=== PATIENT | female | born 1975 | race Caucasian/White ===

== ENCOUNTER 2020-06-21 10:40 | Outpatient (NON) | payer OTHER, SELFPAY ==
[2020-06-22 13:34] LABS: SARS-CoV-2 RNA PCR Positive
== END 2020-06-21 10:41 ==
PROVIDERS: PCP Family Medicine; Visit Provider Family Medicine
DX: U07.1 COVID-19 (principal)
CPT/HCPCS: 87635; C9803; U0003

== ENCOUNTER → 2020-07-25 08:21 | Outpatient (CLI) | payer OTHER, SELFPAY ==
--- NOTE | ~2020-07-25 | XR_ITS ---
XR chest 2V DATE: 07/25/2020 08:44 INDICATION: Shortness of breath TECHNIQUE: PA and lateral views COMPARISON: None FINDINGS: Normal heart size. No hilar or mediastinal enlargement. No pulmonary infiltrate or consolid ation, pleural effusion or pulmonary vascular congestion or pneumothorax. IMPRESSION: No active cardiopulmonary disease Reviewed, dictated and finalized at location A. D GAUGER
== END ==
PROVIDERS: Visit Provider Physician Assistant
DX: R06.02 Shortness of breath (principal)
CPT/HCPCS: 71046

== ENCOUNTER → 2020-08-29 11:13 | Outpatient (CLI) | payer OTHER, SELFPAY ==
--- NOTE | ~2020-08-29 | US_ITS ---
EXAMINATION: US thyroid DATE: 08/29/2020 12:04 INDICATION: Goiter. TECHNIQUE: Multiple ultrasound images of the thyroid were obtained. COMPARISON: Ultrasound 11/21/2013 FINDINGS: The right thyroid lobe measures 4.4 x 1.2 x 1.0 cm. The left thyroid lobe measures 3.7 x 1.0 x 1.2 c m. There is normal echotexture and echogenicity throughout the thyroid gland. No discrete nodules id entified. Normal vascular flow is present. IMPRESSION: 1. Normal thyroid. Reviewed, dictated and finalized at location A. SLIDE MACHINE OPERATOR IMPRESSION: 1. Normal thyroid.
== END ==
PROVIDERS: Visit Provider Internal Medicine Endocrinology, Diabetes & Metabolism
DX: E04.9 Nontoxic goiter, unspecified (principal)
CPT/HCPCS: 76536

== ENCOUNTER → 2021-01-29 10:31 | Outpatient (CLI) | payer OTHER, SELFPAY ==
--- NOTE | ~2021-01-29 | XR_ITS ---
XR abdomen/kub 1V DATE: 01/29/2021 13:46 INDICATION: Kidney stones TECHNIQUE: AP view COMPARISON: None FINDINGS: Multiple bilateral calcified pelvic phleboliths. No significant abnormal calcification is e vident. No visceromegaly is evident. The psoas shadows are intact. There is a moderately prominent amount of fecal material within the colon but no evidence of bowel obstruction. IMPRESSION: Nonspecific abdomen Reviewed, dictated and finalized at Location A. Reviewed, dictated and finalized at location A. IMPRESSION: Nonspecific abdomen
== END ==
PROVIDERS: Visit Provider Urology
DX: N20.0 Calculus of kidney (principal)
CPT/HCPCS: 74018

== ENCOUNTER 2022-05-26 08:17 | Outpatient (CLI) | payer OTHER, SELFPAY ==
--- NOTE | ~2022-05-26 | XR_ITS ---
EXAMINATION: XR chest 2V DATE: 05/26/2022 08:47 INDICATION: Shortness of breath. TECHNIQUE: Frontal and lateral views of the chest were obtained. COMPARISON: Chest 2 views 07/25/2020 FINDINGS: The chest demonstrates clear lungs without pneumonia, pleural effusion, or pneumothorax. Th e heart size is normal. IMPRESSION: 1. No acute cardiopulmonary disease. Reviewed, dictated and finalized at location A.
--- NOTE | ~2022-05-26 | XR_ITS ---
EXAMINATION: XR abdomen/kub 1V DATE: 05/26/2022 08:47 INDICATION: Constipation, unspecified. TECHNIQUE: A supine view of the abdomen on 2 radiographs was obtained. COMPARISON: Abdomen radiograph 01/29/2021 FINDINGS: There are no dilated loops of bowel. There is a large volume of stool in the colon. Calcifi cations in the pelvis are likely phleboliths. IMPRESSION: 1. Nonobstructive bowel gas pattern. Reviewed, dictated and finalized at location A.
[2022-05-26 08:39] LABS: Basophils Absolute Auto 0.1 K/mm3 (0.0-0.1); Basophils Percent Auto 0.9 % (0.2-1.2); Eosinophils Absolute Auto 1.2 K/mm3 (0-0.3); Hematocrit 50.8 % (37.0-47.0); Hemoglobin 17.9 g/dL (12.0-15.0); Immature Granulocyte Absolute 0.04 K/mm3 (0.00-0.031); Immature Granulocyte Percent A 0.3 % (0-0.5); Lymphocytes Absolute Auto 3.04 K/mm3 (0.9-3.2); Lymphocytes Percent Auto 22.9 % (18.3-44.2); Mean Corpuscular HGB Conc 35.2 g/dl (32-36); Mean Corpuscular Hemoglobin 30.2 pg (26-34); Mean Corpuscular Volume 85.7 fl (80-100); Mean Platelet Volume 9.5 fl (7.4-10.4); Monocytes Absolute Auto 0.9 K/mm3 (0.1-0.6); Neutrophils Percent Auto 59.9 % (45.5-73.1); Platelet Count Result 446 k/mm3 (150-375); Red Blood Count 5.93 M/mm3 (4.2-5.4); Red Cell Distribution Width 11.5 % (11.5-14.5); White Blood Count 13.3 K/mm3 (4.5-10.0)
[2022-05-26 08:53] LABS: Alanine Aminotransferase 21 U/L (6-35); Albumin Level 5.2 g/dL (3.5-5.1); Alkaline Phosphatase 73 U/L (38-126); Anion Gap 21 mmol/L (8-16); Aspartate Amino Transferase 23 U/L (14-36); Bilirubin,Total 0.7 mg/dL (0.2-1.3); Blood Urea Nitrogen 14 mg/dL (7-17); Calcium 9.5 mg/dL (8.4-10.2); Carbon Dioxide 12 mmol/L (22-30); Chloride 100 mmol/L (98-107); Estimated Glomerular Filt Rate > 60; Glucose 146 mg/dL (65-110); Potassium 4.3 mmol/L (3.4-5.0); Sodium 133 mmol/L (137-145)
[2022-05-26 08:55] LABS: Amylase 70 U/L (30-110); Lipase 233 U/L (23-300)
[2022-05-26 09:02] LABS: NT Pro B Type Natriuretic Pept 18 pg/mL (5-100)
[2022-05-26 09:13] LABS: D Dimer < 0.27 ug/mL (<0.48)
[2022-05-26 09:27] LABS: Iron 260 ug/dL (37-170)
[2022-05-26 09:36] LABS: Percent Iron Saturation 62 % (20-50)
[2022-05-26 10:01] LABS: Folic Acid 10.1 ng/mL (2.76->20)
== END 2022-05-26 08:18 | disposition home or self-care (01) ==
LOC: ANHLAB 08:18
PROVIDERS: PCP Family Medicine; Visit Provider Physician Assistant
DX: R00.0 Tachycardia, unspecified (principal); R06.02 Shortness of breath; R53.83 Other fatigue; K59.00 Constipation, unspecified
CPT/HCPCS: 36415; 71046; 74018; 80053; 82150; 82607; 82728; 82746; 83540; 83550; 83690; 83880; 84443; 85025; 85380

== ENCOUNTER → 2022-07-31 07:18 | Outpatient (CLI) | payer OTHER, SELFPAY ==
--- NOTE | ~2022-07-31 | XR_ITS ---
AP and lateral views of the bilateral hips Clinical history: Polyarthralgia Findings: No acute fracture or dislocation is seen. Osseous alignment is anatomic. Bilateral hip and SI joint spaces are preserved. Soft tissues are unremarkable. Impression: No significant abnormality is seen. Reviewed, dictated and finalized at location [] ADVICE Impression: No significant abnormality is seen.
--- NOTE | ~2022-07-31 | XR_ITS ---
Lumbosacral Spine: AP and lateral views Clinical History: Pain Findings: The normal lordotic curve is maintained. The vertebral bodies and posterior elements are i ntact. The intervertebral disc spaces are preserved. Facet joint degenerative changes are present at L4-L5 and L5-S1. The sacroiliac joints are normally outlined. Impression: Facet joint degenerative changes, as detailed above. Reviewed, dictated and finalized at location [] TER MACHINE OPERATOR Impression: Facet joint degenerative changes, as detailed above.
--- NOTE | ~2022-07-31 | XR_ITS ---
AP and oblique views of the bilateral SI joints CLINICAL HISTORY: Arthralgia FINDINGS: SI joints are unremarkable. No sclerosis, erosive change, or effusion. No other osseous abn ormality seen. Soft tissues are unremarkable. IMPRESSION: Unremarkable exam. Reviewed, dictated and finalized at location [] ON PICKING MACHINE OPERATOR IMPRESSION: Unremarkable exam.
== END ==
PROVIDERS: PCP Family Medicine; Visit Provider Physician Assistant
DX: M25.50 Pain in unspecified joint (principal); R76.8 Other specified abnormal immunological findings in serum
CPT/HCPCS: 72100; 72202; 73521

== ENCOUNTER 2023-08-25 06:41 | Day surgery (SDC) | payer OTHER, SELFPAY ==
[2023-08-03 15:23] VITALS: BMI 23.8
[2023-08-10 13:32] VITALS: BMI 28.7
[2023-08-25 07:30] VITALS: BP 136/85; PULSE 88; RESP 20; TEMP 37.2; O2SAT 100
[2023-08-25 07:48] LABS: Glucose Point of Care 128 mg/dl (65-105)
[2023-08-25] MEDS: LACTATED RINGERS 1,000 ML 150 ML IV CONT (07:48)
--- NOTE | 2023-08-25 08:04 | WPDANESEPPF ---
Anes - Initial Pre Proc Eval Procedure: Operation Date: 08/25/23 09:00 Proposed Procedures p Screening Colonoscopy - Rowdy Lucia MD Date/Time: 08/25/23 08:04 Surgeon: Rowdy Lucia MD Pre Op Diagnosis: Neoplasm Screening Patient Data Age: 47 Gender: F Height: 1.55 m Weight: 67.5 kg Last Vital Signs Temp 37.2 C 08/25/23 07:30 Pulse 88 08/25/23 07:30 Resp 20 08/25/23 07:30 BP 136/85 08/25/23 07:30 Pulse Ox 100 08/25/23 07:30 O2 Del Method Room Air 08/25/23 07:30 Allergies Allergy/AdvReac Type Severity Reaction Status Date / Time hydrocodone Allergy Unknown Rash Verified 08/25/23 07:51 Home Medications Medication Instructions Recorded Confirmed Type levonorgestrel 0.15 mg-ethinyl 1 tablet PO DAILY 09/07/19 08/10/23 History estradiol 0.03 mg tablet (Levora-28) trazodone 100 mg tablet 100 mg PO .qhs #90 tabs 09/16/20 08/10/23 Rx fluoxetine 20 mg capsule 20 mg PO DAILY #30 caps 05/05/21 08/10/23 Rx empagliflozin 25 mg tablet 25 mg PO DAILY 07/30/21 08/10/23 History (Jardiance) rosuvastatin 20 mg tablet (Crestor) 20 mg PO DAILY #30 tabs 07/30/21 08/10/23 Rx spironolactone 50 mg tablet 50 mg PO BID 07/30/21 08/10/23 History blood sugar diagnostic #100 ea 12/04/22 06/16/23 Rx cyanocobalamin (vitamin B-12) 1,000 mcg subcut WEEKLY #10 mL 06/16/23 08/10/23 Rx 1,000 mcg/mL injection solution metformin 500 mg tablet,extended 1,000 mg PO BID #360 tabs 07/16/23 08/10/23 Rx release 24 hr aspirin 81 mg capsule 81 mg PO DAILY 08/10/23 08/10/23 History bupropion HCl 150 mg 24 hr tablet, 150 mg PO DIRECTED 08/10/23 08/10/23 History extended release semaglutide 0.25 mg or 0.5 mg (2 0.5 mg (0.736 mL) subcut WEEKLY #3 08/13/23 08/25/23 Rx mg/3 mL) subcutaneous pen injector mL sodium,potassium,mag sulfates 17.5 See Rx Instructions PO .COMPLEX 08/18/23 Rx gram-3.13 gram-1.6 gram oral soln #354 mL (Suprep Bowel Prep Kit) Laboratory Tests 08/25/23 07:45 POC Capillary Glucose 128 H mg/dl (65-105) Patient hx anesthesia problems: post op nausea/vomiting Family hx anesthesia problems: none Results Review: All pre-operative results and documents have been reviewed as part of the pre-operative evaluation. PMFSH Past Medical History Medical History Mixed incontinence Vitamin B12 deficiency Family History Family History Father Depression Hypertension Mother Depression Social History Social History Smoking packs per day: 1 Smoking cigarettes per day: 20.0 Years smoked: 15 Smoking pack-years: 15.00 Smoking status: Former smoker Tobacco type: cigarettes Second hand tobacco smoke exposure: No Smoking end date: 08/16/10 Alcohol intake: never Substance use: never Substance use type: does not use Living arrangements: with family Occupation/Education: occupation Gender identity (if verbalized by the patient): Female Spiritual care concerns: No Anes - Eval Final PreProcedure Day of Procedure 08/25/23 08:04 Patient weight: overweight Heart: regular rate and rhythm Lungs: clear to auscultation Airway: Mallampati scale class II Neurological: alert and oriented Last oral intake: >/= 8 hours ASA classification: III Emergent: no Anesthetic plan: proceed Anesthesia type and monitoring: general GIVS and standard monitoring Results Review: All pre-operative results and documents have been reviewed as part of the pre-operative evaluation. Informed Consent: The patient's anesthetic plan and its attendant risks and benefits were discussed with the patient/family/POA. Questions were solicited and answers provided to the satisfaction of the patient/family/POA.
--- NOTE | 2023-08-25 08:07 | PM.HPGS ---
History of Present Illness History of Present Illness Consent: Risks, benefits, and alternatives have been discussed and questions answered. Patient agrees to proceed with procedure. Chief complaint: Neoplasm Screening Narrative: Fina Edgar is a 47 year old female presents for screening colonoscopy. Patient has current weight appetite and bowel movements are normal. Eyes abdominal pain. She has had no bleeding. Family history is noncontributory. Review of Systems Review of Systems: Review of systems is noncontributory. [facility] Past Medical History Medical History Mixed incontinence Vitamin B12 deficiency Family History Family History Father Depression Hypertension Mother Depression Social History Social History Smoking packs per day: 1 Smoking cigarettes per day: 20.0 Years smoked: 15 Smoking pack-years: 15.00 Smoking status: Former smoker Tobacco type: cigarettes Second hand tobacco smoke exposure: No Smoking end date: 08/16/10 Alcohol intake: never Substance use: never Substance use type: does not use Living arrangements: with family Occupation/Education: occupation Gender identity (if verbalized by the patient): Female Spiritual care concerns: No Meds Home Medications and Allergies Home Medications Medication Instructions Recorded Confirmed Type levonorgestrel 0.15 mg-ethinyl 1 tablet PO DAILY 09/07/19 08/10/23 History estradiol 0.03 mg tablet (Levora-28) trazodone 100 mg tablet 100 mg PO .qhs #90 tabs 09/16/20 08/10/23 Rx fluoxetine 20 mg capsule 20 mg PO DAILY #30 caps 05/05/21 08/10/23 Rx empagliflozin 25 mg tablet 25 mg PO DAILY 07/30/21 08/10/23 History (Jardiance) rosuvastatin 20 mg tablet (Crestor) 20 mg PO DAILY #30 tabs 07/30/21 08/10/23 Rx spironolactone 50 mg tablet 50 mg PO BID 07/30/21 08/10/23 History blood sugar diagnostic #100 ea 12/04/22 06/16/23 Rx cyanocobalamin (vitamin B-12) 1,000 mcg subcut WEEKLY #10 mL 06/16/23 08/10/23 Rx 1,000 mcg/mL injection solution metformin 500 mg tablet,extended 1,000 mg PO BID #360 tabs 07/16/23 08/10/23 Rx release 24 hr aspirin 81 mg capsule 81 mg PO DAILY 08/10/23 08/10/23 History bupropion HCl 150 mg 24 hr tablet, 150 mg PO DIRECTED 08/10/23 08/10/23 History extended release semaglutide 0.25 mg or 0.5 mg (2 0.5 mg (0.736 mL) subcut WEEKLY #3 08/13/23 08/25/23 Rx mg/3 mL) subcutaneous pen injector mL sodium,potassium,mag sulfates 17.5 See Rx Instructions PO .COMPLEX 08/18/23 Rx gram-3.13 gram-1.6 gram oral soln #354 mL (Suprep Bowel Prep Kit) Allergies Allergy/AdvReac Type Severity Reaction Status Date / Time hydrocodone Allergy Unknown Rash Verified 08/25/23 07:51 Vital Signs Vital Signs - 24 hr 08/25/23 07:30 Temperature 98.9 F Pulse Rate 88 Respiratory Rate 20 Blood Pressure 136/85 Pulse Oximetry 100 Oxygen Delivery Room Air Exam Narrative: Physical exam reveals patient to be alert. Vital signs stable. HEENT he exam is unremarkable. Patient is anicteric. Lungs are clear to auscultation and to percussion. Is without murmur or extra sounds. Abdomen bowel sounds are present soft no organomegaly. Digital and external rectal exam is normal. Assessment and Plan Assessment and plan (1) Encounter for screening colonoscopy: Code(s): Z12.11 - Encounter for screening for malignant neoplasm of colon Status: Acute Assessment and Plan: The patient presents for screening colonoscopy. She appears to be at average risk for colon cancer.
[2023-08-25 09:24] VITALS: BP 108/76; PULSE 82; RESP 16; O2SAT 97
[2023-08-25 09:34] VITALS: BP 101/78; PULSE 77; RESP 16; O2SAT 97
[2023-08-25 09:44] VITALS: BP 109/80; PULSE 72; RESP 16; O2SAT 100
--- NOTE | 2023-08-25 09:50 | WPDANESPN ---
Anes - Prog Note Post-Op Date/Time: 08/25/23 09:50 Cardiovascular status: normal Respiratory status: normal Airway patency: baseline Mental status: baseline Post-Op hydration status: normal Vital Signs: Last Vital Signs Temp 37.2 C 08/25/23 07:30 Pulse 77 08/25/23 09:34 Resp 16 08/25/23 09:34 BP 101/78 08/25/23 09:34 Pulse Ox 97 08/25/23 09:34 O2 Del Method Room Air 08/25/23 09:34 Pain Score (VAS): 0 I/O: Intake & Output 08/24/23 08/25/23 08/25/23 23:59 07:59 15:59 Intake Total 700 Balance 700 08/25/23 07:45 POC Capillary Glucose 128 H Patient Feedback: Patient satisfied with anesthetic care.
== END 2023-08-25 10:10 | disposition home or self-care (01) ==
PROVIDERS: PCP Family Medicine; Visit Provider Internal Medicine Gastroenterology
PROC: 0DJD8ZZ Inspection of Lower Intestinal Tract, Via Natural or Artificial Opening Endoscopic (ICD-10-PCS; CPT 45378; principal; 2023-08-25 09:00)
DX: Z83.718 Family history of other colon polyps (principal); D12.0 Benign neoplasm of cecum; D12.5 Benign neoplasm of sigmoid colon; K64.8 Other hemorrhoids
CPT/HCPCS: 45380

== ENCOUNTER 2023-08-25 07:00 | Outpatient (NON) | payer OTHER, SELFPAY | END 2023-08-25 07:01 | disposition home or self-care (01) | PROVIDERS: PCP Family Medicine; Visit Provider Internal Medicine Gastroenterology | DX: Z12.11 Encounter for screening for malignant neoplasm of colon (principal) | CPT/HCPCS: 88305 ==

== ENCOUNTER 2023-10-31 13:24 | Emergency (ER) | payer OTHER, SELFPAY ==
--- NOTE | ~2023-10-31 | XR_ITS ---
EXAMINATION: XR chest 2V Exam Date/Time: 10/31/2023 13:50 CDT HISTORY: cough, dyspnea Comparison: 05/26/2022. RESULT: Lines, tubes, and devices: None. Lungs and pleura: Clear. Cardiomediastinal silhouette: Stable. Other: No acute osseous or upper abdominal finding. IMPRESSION: No acute cardiopulmonary process. Reviewed, dictated and finalized at location K.
[2023-10-31 13:31] VITALS: BP 127/90; PULSE 96; RESP 20; TEMP 37.4; O2SAT 100
--- NOTE | 2023-10-31 13:43 | ED.URI ---
HPI - URI/Sore Throat General Chief Complaint: Upper Respiratory Infection Stated Complaint: Cough/Chest Congestion Time Seen by Provider: 10/31/23 13:43 Source: patient Mode of arrival: ambulatory Limitations: no limitations History of Present Illness HPI Narrative: 48 yo F presents with c/o cough, chest congestion for 1 wk. over past few days reports worsening of cough, SOB with coughing and CP. afebrile. Sore throat for 1 day. requesting strep test. No resp distress noted. States she stopped smoking approx. 15 yrs ago. All systems reviewed and negative except as noted above. Related Data Home Medications Medication Instructions Recorded Confirmed levonorgestrel 0.15 mg-ethinyl 1 tablet PO DAILY 09/07/19 08/10/23 estradiol 0.03 mg tablet (Levora-28) empagliflozin 25 mg tablet 25 mg PO DAILY 07/30/21 08/10/23 (Jardiance) spironolactone 50 mg tablet 50 mg PO BID 07/30/21 08/10/23 aspirin 81 mg capsule 81 mg PO DAILY 08/10/23 08/10/23 bupropion HCl 150 mg 24 hr tablet, 150 mg PO DIRECTED 08/10/23 08/10/23 extended release topiramate 25 mg tablet 50 mg PO DIRECTED 10/31/23 10/31/23 trazodone 50 mg tablet 50 mg PO DAILY 10/31/23 10/31/23 Allergies Allergy/AdvReac Type Severity Reaction Status Date / Time hydrocodone Allergy Unknown Rash Verified 10/31/23 13:33 Review of Systems Review of Systems: CONSTITUTIONAL: Denies fever, chills, or sweats. Reports fatigue. EYES: Denies visual changes, redness, or discharge. ENT: Denies rhinorrhea, congestion. Reports sore throat. Denies otalgia. CARDIOVASCULAR: Denies chest pain, palpitations, or edema. RESPIRATORY: Reports cough and dyspnea with coughing. GASTROINTESTINAL: Denies abdominal pain, nausea, vomiting, or diarrhea. GENITOURINARY: Denies dysuria or hematuria. SKIN: Denies rash or itching. MUSCULOSKELETAL: Denies back pain, joint pain, or myalgia. NEUROLOGIC: Denies headache, numbness, or weakness. PSYCHIATRIC: Denies anxiety or depression. All other systems reviewed are negative, except as documented in HPI. PMFSH Past Medical History Medical History Mixed incontinence Vitamin B12 deficiency Family History Family History Father Depression Hypertension Mother Depression Social History Social History Smoking packs per day: 1 Smoking cigarettes per day: 20.0 Years smoked: 15 Smoking pack-years: 15.00 Smoking status: Former smoker Tobacco type: cigarettes Second hand tobacco smoke exposure: No Smoking end date: 08/16/10 Alcohol intake: never Substance use: never Substance use type: does not use Living arrangements: with family Occupation/Education: occupation Gender identity (if verbalized by the patient): Female Spiritual care concerns: No Comments At time of signature, agree with nursing past medical, surgical, social and family history. There is no relevant family history pertinent to the presenting complaint. Exam Narrative: GENERAL: This is a well-nourished, well-developed patient, in no apparent distress. HEAD: normocephalic, atraumatic. EYES: PERRL. Sclera clear/white. Vision is grossly intact. EARS: External ears normal, auditory canals clear and without drainage, TMs normal without perforation. Hearing grossly intact. NOSE: External nose normal with mild congestion, clear nasal drainage. THROAT: Mucous membranes moist, mild erythema postnasal drainage. No exudates or swelling. NECK: Neck supple, non-tender without lymphadenopathy, masses or thyromegaly. CARDIOVASCULAR: Regular rate and rhythm without murmurs, gallops, or rubs. RESPIRATORY: Mildly decreased lower lung ambriz, Veronica's clear breath sounds equal bilaterally. No wheezes, rales, or rhonchi. SKIN: warm, Dry, intact with no suspicious lesions or rash, good
[2023-10-31 14:10] VITALS: PULSE 95; RESP 18; O2SAT 99
[2023-10-31] MEDS: IPRATROPIUM BR 0.02% INH SOLN 0.5 MG/2.5 ML VIAL INHALATION (14:10)
[2023-10-31] MEDS: ALBUTEROL SULFATE NEB 2.5 MG/3 ML INH INHALATION (14:11)
== END 2023-10-31 14:40 | disposition home or self-care (01) ==
PROVIDERS: Emergency Provider Nurse Practitioner Family; PCP Family Medicine
DX: J20.9 Acute bronchitis, unspecified (principal); Z87.891 Personal history of nicotine dependence
CPT/HCPCS: 71046; 87081; 87880; 94640; 99213; G0463

== ENCOUNTER 2023-11-01 17:47 | Emergency (ER) | payer OTHER, SELFPAY ==
--- NOTE | 2023-11-01 18:31 | PC.NURSE ---
[id number] called for triage, no response
--- NOTE | 2023-11-01 18:57 | PC.NURSE ---
[id number] called for triage, no response
== END 2023-11-01 20:09 | disposition left against medical advice (07) ==
LOC: ANHED 19:44
PROVIDERS: PCP Family Medicine
DX: Z53.21 Procedure and treatment not carried out due to patient leaving prior to being seen by health care provider (principal)
CPT/HCPCS: 99199